=== PATIENT | female | born 1975 | race Caucasian/White ===

== ENCOUNTER 2016-09-05 20:02 | Outpatient (CLI) | payer MEDICAID ==
[~2016-09-05 20:02] MED LIST: CHOL4PAC19 PO; FAMO-119 PO; HYDR1TAB PO; HYDR25TA4 PO; LISI1TAB10 PO; METO-272 PO; MTF500T PO; NAPR500T3 PO; OMNICEF PO; ONDA8TAB13 PO; PANT40TA2 PO; POTA-51 PO; RT-ALBUINH IH; TRAM50TA2 PO
== END 2016-09-06 07:25 | disposition home or self-care (01) ==
LOC: SLEEP 20:02
PROVIDERS: ATTEND Nurse Practitioner Family
DX: G47.10 Hypersomnia, unspecified (principal); R06.83 Snoring
CPT/HCPCS: 95811

== ENCOUNTER 2016-11-08 10:06 | Emergency (ER) | payer MEDICAID ==
[~2016-11-08] VITALS: Ht 165.1 cm; Wt 139.3 kg
[2016-11-08] MEDS ORDERED: ASPIRIN 81 MG CHEW (CHILDREN'S ASA) PO ONE (10:15)
--- NOTE | 2016-11-08 10:25 | ED General ---
General Stated Complaint: DIZZY/CHEST PAIN HEADACHE Source of Information: Patient Exam Limitations: No Limitations History of Present Illness Time Seen by Provider: 10:23 Initial Comments Ambulatory to ER with reports of dizziness that began this morning upon awakening, chest pain, shortness of breath, diffuse body cramping. Upon arrival to the emergency room to be seen she developed headache. Timing/Duration: 4-6 Hours Severity: Moderate Associated Systoms: Chest Pain, No Cough, No Diaphoresis, No Fever/Chills, Headaches, No Loss of Appetite, No Malaise, No Nausea/Vomiting, No Rash Allergies and Home Medications Allergies Coded Allergies: Penicillins (Unverified Allergy, Unknown, HIVES, 06/23/14) BURNING SENSATION ALL OVER BODY Constitutional: see HPI EENTM: see HPI Respiratory: no symptoms reported Cardiovascular: see HPI, chest pain Genitourinary: no symptoms reported Musculoskeletal: see HPI, muscle cramps Skin: no symptoms reported Psychiatric/Neurological: See HPI, Headache Hematologic/Lymphatic: No Symptoms Reported Immunological/Allergic: no symptoms reported Past Zdwsorb-Ksjzcx-Whjspt Hx Patient Social History Recent Foreign Travel: No Contact w/Someone Who Travel: No Surgeries HX Surgeries: Yes (HERNIA, BLADDER SLING) Surgeries: Abdominal, Bladder Surgery, Gallbladder, Hysterectomy, Tubal Ligation Respiratory Hx Respiratory Disorders: Yes (ASTHMA) Respiratory Disorders: Asthma Cardiovascular Hx Cardiac Disorders: Yes Cardiac Disorders: Hypertension Neurological Hx Neurological Disorders: No 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 Genitourinary Hx Genitourinary Disorders: No Gastrointestinal Hx Gastrointestinal Disorders: No Musculoskeletal Hx Musculoskeletal Disorders: No Endocrine Hx Endocrine Disorders: Yes (OBESITY) Endocrine Disorders: Diabetes, Non-Insulin dep HEENT HX ENT Disorders: No Cancer Hx Cancer: No Psychosocial Hx Psychiatric Problems: No Blood Transfusions Hx Blood Disorders: No Family Medical History Significant Family History: No Pertinent Family Hx Physical Exam Vital Signs Vital Sign - Last 12Hours 11/08/16 10:06 Temp 97.9 Pulse 87 Resp 18 Pulse Ox 98 O2 Delivery Room Air Capillary Refill : General Appearance: No Apparent Distress, WD/WN, Obese Eyes: Bilateral Eye EOMI, Bilateral Eye Normal Inspection, Bilateral Eye PERRL HEENT: PERRL/EOMI, TMs Normal Neck: Full Range of Motion, Normal Inspection Respiratory: Normal Breath Sounds, No Accessory Muscle Use, No Respiratory Distress Cardiovascular: Regular Rate, Rhythm, Normal Peripheral Pulses Gastrointestinal: Normal Bowel Sounds, Non Tender, Soft Neurologic/Psychiatric: Alert, Oriented x3, No Motor/Sensory Deficits Skin: Normal Color, Warm/Dry Progress/Results/Core Measures Results/Orders Lab Results Laboratory Tests Test 11/08/16 10:25 11/08/16 10:43 Range/Units White Blood Count 13.6 H 4.3-11.0 10^3/uL Red Blood Count 4.65 4.35-5.85 10^6/uL Hemoglobin 13.0 11.5-16.0 G/DL Hematocrit 41 35-52 % Mean Corpuscular Volume 89 80-99 FL Mean Corpuscular Hemoglobin 28 25-34 PG Mean Corpuscular Hemoglobin Concent 32 32-36 G/DL Red Cell Distribution Width 15.9 H 10.0-14.5 % Platelet Count 334 130-400 10^3/uL Mean Platelet Volume 9.6 7.4-10.4 FL Neutrophils (%) (Auto) 78 H 42-75 % Lymphocytes (%) (Auto) 17 12-44 % Monocytes (%) (Auto) 3 0-12 % Eosinophils (%) (Auto) 2 0-10 % Basophils (%) (Auto) 0 0-10 % Neutrophils # (Auto) 10.6 H 1.8-7.8 X 10^3 Lymphocytes # (Auto) 2.3 1.0-4.0 X 10^3 Monocytes # (Auto) 0.4 0.0-1.0 X 10^3 Eosinophils # (Auto) 0.2 0.0-0.3 10^3/uL Basophils # (Auto) 0.0 0.0-0.1 10^3/uL Prothrombin Time 13.6 12.2-14.7 SEC INR Comment 1.1 0.8-1.4 Activated Partial Thromboplast Time 29 24-35 SEC Sodium Level 140 135-145 MMOL/L Potassium Level 4.0 3.6-5.0 MMOL/L Chloride Level 103 98-107 MMOL/L Carbon Dioxide Level 25 21-32 MMOL/L Anion Gap 12 5-14 MMOL/L Blood Urea Nitrogen 8 7-18 MG/DL Creatinine 0.74 0.60-1.30 MG/DL Estimat Glomerular Filtration Rate > 60 BUN/Creatinine Ratio 11 Glucose Level 186 H 70-105 MG/DL Calcium Level 9.3 8.5-10.1 MG/DL Magnesium Level 2.1 1.8-2.4 MG/DL Total Bilirubin 0.7 0.1-1.0 MG/DL Aspartate Amino Transf (AST/SGOT) 12 5-34 U/L Alanine Aminotransferase (ALT/SGPT) 10 0-55 U/L Alkaline Phosphatase 124 40-136 U/L Myoglobin 28.9 10.0-92.0 NG/ML Troponin I < 0.30 <0.30 NG/ML Total Protein 7.5 6.4-8.2 G/DL Albumin 3.9 3.2-4.5 G/DL Urine Color YELLOW Urine Clarity CLEAR Urine pH 7 5-9 Urine Specific [place] 1.005 L 1.016-1.022 Urine Protein NEGATIVE NEGATIVE Urine Glucose (UA) NEGATIVE NEGATIVE Urine Ketones NEGATIVE NEGATIVE Urine Nitrite NEGATIVE NEGATIVE Urine Bilirubin NEGATIVE NEGATIVE Urine Urobilinogen NORMAL NORMAL MG/DL Urine Leukocyte Esterase NEGATIVE NEGATIVE Urine RBC (Auto) NEGATIVE NEGATIVE Urine RBC NONE /HPF Urine WBC RARE /HPF Urine Squamous Epithelial Cells 2-5 /HPF Urine Crystals NONE /LPF Urine Bacteria FEW H /HPF Urine Casts NONE /LPF Urine Mucus NEGATIVE /LPF Urine Culture Indicated NO My Orders Orders - ANALISA MENDOZA APRN Cbc With Automated Diff (11/08/16 10:11) Magnesium (11/08/16 10:11) Ekg Tracing (11/08/16 10:11) Cardiac Profile 1 (11/08/16 10:11) Comprehensive Metabolic Panel (11/08/16 10:11) Myoglobin Serum (11/08/16 10:11) Protime With Inr (11/08/16 10:11) Partial Thromboplastin Time (11/08/16 10:11) O2 (11/08/16 10:11) Monitor-Rhythm Ecg Trace Only (11/08/16 10:11) Lipid Panel (11/09/16 06:00) Aspirin Chewable Tablet (Baby Aspirin Ch (11/08/16 10:15) Saline Lock/Iv-Start (11/08/16 10:11) Ct Head Wo (11/08/16 10:23) Ct Angio Chest W (11/08/16 10:31) Ua Culture If Indicated (11/08/16 10:33) Iohexol Injection (Omnipaque 350 Mg/Ml 1 (11/08/16 10:45) Sodium Chloride Flush (Catheter Flush Sy (11/08/16 10:45) Ns (Ivpb) (Sodium Chloride 0.9% Ivpb Bag (11/08/16 10:45) Ketorolac Injection (Toradol Injection) (11/08/16 11:45) Diphenhydramine Injection (Benadryl Inje (11/08/16 11:45) Ns Iv 1000 Ml (Sodium Chloride 0.9%) (11/08/16 11:45) Medications Given in ED Current Medications Medications Dose Ordered Sig/Marisela Route Start Time Stop Time Status Last Admin Dose Admin Aspirin 324 mg ONCE ONCE PO 11/08/16 10:15 11/08/16 10:16 DC 11/08/16 10:29 324 MG Diphenhydramine HCl 25 mg ONCE ONCE IVP 11/08/16 11:45 11/08/16 11:46 DC 11/08/16 12:02 25 MG Iohexol 150 ml ONCE ONCE IV 11/08/16 10:45 11/08/16 10:46 DC 11/08/16 11:30 125 ML Ketorolac Tromethamine 30 mg ONCE ONCE IVP 11/08/16 11:45 11/08/16 11:46 DC 11/08/16 12:01 30 MG Sodium Chloride 10 ml NEEDED PRN IV 11/08/16 10:45 11/08/16 11:30 10 ML Sodium Chloride 100 ml ONCE ONCE IV 11/08/16 10:45 11/08/16 10:46 DC 11/08/16 11:30 80 ML Vital Signs/I&O Vital Sign - Last 12Hours 11/08/16 11/08/16 11/08/16 10:06 10:29 12:01 Temp 97.9 97.3 97.3 Pulse 87 Resp 18 B/P (MAP) Pulse Ox 98 O2 Delivery Room Air Departure Communication Progress Notes 1239-Patient had a completely clean cardiac catheterization 3 years ago. Impression Impression: Primary Impression: Headache Additional Impressions: general malaise Chest pain Departure-Patient Inst. Decision time for Depature: 12:39 Referrals: DAVID CABRERA MD (PCP/Family) Primary Care Physician Patient Instructions: Chest Pain That Is Not Caused by the Heart (DC) Add. Discharge Instructions: 1. Return to ER for any concerns 2. Follow-up with your doctor later this week 3. Work/School Note: Work Release Form Date Seen in the Emergency Department: Nov 08, 2016 Return to Work: Nov 09, 2016 ANALISA MENDOZA APRN Nov 08, 2016 10:25
[2016-11-08 10:35] LABS: BASOPHILS % (AUTO) 0 % (0-10); EOSINOPHILS # (AUTO) 0.2 10^3/uL (0.0-0.3); EOSINOPHILS % (AUTO) 2 % (0-10); LYMPHOCYTES # (AUTO) 2.3 X 10^3 (1.0-4.0); LYMPHOCYTES % (AUTO) 17 % (12-44); MEAN CORPUSCULAR HEMOGLOBIN 28 PG (25-34); MEAN CORPUSCULAR HGB CONC 32 G/DL (32-36); MEAN CORPUSCULAR VOLUME 89 FL (80-99); MEAN PLATELET VOLUME 9.6 FL (7.4-10.4); MONOCYTES # (AUTO) 0.4 X 10^3 (0.0-1.0); MONOCYTES % (AUTO) 3 % (0-12); NEUTROPHILS # (AUTO) 10.6 X 10^3 (1.8-7.8); NEUTROPHILS % (AUTO) 78 % (42-75); PLATELET COUNT 334 10^3/uL (130-400); RED BLOOD COUNT 4.65 10^6/uL (4.35-5.85); RED CELL DISTRIBUTION WIDTH 15.9 % (10.0-14.5); WHITE BLOOD COUNT 13.6 10^3/uL (4.3-11.0)
[2016-11-08] MEDS ORDERED: IOHEXOL 350 MG/ML 150 ML (OMNIPAQUE 350) VIAL IV ONE (10:45)
[2016-11-08] MEDS ORDERED: NS 100 ML (IVPB) BAG IV ONE (10:45)
[2016-11-08] MEDS ORDERED: CATHETER FLUSH 10 ML SYR IV PRN (10:45)
[2016-11-08 10:52] LABS: INR 1.1 (0.8-1.4); PROTHROMBIN TIME PATIENT 13.6 SEC (12.2-14.7)
[2016-11-08 10:53] LABS: BILIRUBIN,URINE NEGATIVE (NEGATIVE); KETONES,URINE NEGATIVE (NEGATIVE); LEUKOCYTE ESTERASE ,URINE NEGATIVE (NEGATIVE); NITRITE,URINE NEGATIVE (NEGATIVE); PH,URINE 7 (5-9); PROTEIN,URINE NEGATIVE (NEGATIVE); UROBILINOGEN,URINE NORMAL (NORMAL)
[2016-11-08 11:03] LABS: WBC,URINE RARE /HPF
[2016-11-08 11:08] LABS: ALANINE AMINOTRANSFERASE 10 U/L (0-55); ALBUMIN 3.9 G/DL (3.2-4.5); ANION GAP 12 MMOL/L (5-14); ASPARTATE AMINO TRANSFERASE 12 U/L (5-34); BILIRUBIN,TOTAL 0.7 MG/DL (0.1-1.0); BLOOD UREA NITROGEN 8 MG/DL (7-18); BUN/CREATININE RATIO 11; CALCIUM 9.3 MG/DL (8.5-10.1); CARBON DIOXIDE 25 MMOL/L (21-32); CHLORIDE 103 MMOL/L (98-107); CREATININE SERUM 0.74 MG/DL (0.60-1.30); GFR ESTIMATED > 60; GLUCOSE 186 MG/DL (70-105); MAGNESIUM 2.1 MG/DL (1.8-2.4); MYOGLOBIN SERUM 28.9 NG/ML (10.0-92.0); SODIUM 140 MMOL/L (135-145); TOTAL PROTEIN 7.5 G/DL (6.4-8.2)
[2016-11-08] MEDS ORDERED: NS IV 1000 ML 1,000 ML IV SCH (11:45)
[2016-11-08] MEDS ORDERED: KETOROLAC 30 MG/ML VIAL IVP ONE (11:45)
[2016-11-08] MEDS ORDERED: diphenhydrAMINE 50 MG/ML INJ (BENADRYL) IVP ONE (11:45)
--- NOTE | 2016-11-08 11:50 | Diagnostic Imaging Report ---
PROCEDURE: CT head without contrast. TECHNIQUE: Multiple contiguous axial images were obtained through the brain without the use of intravenous contrast. INDICATION: Dizziness. FINDINGS: There is no intracranial hemorrhage, edema, or mass effect. The brain parenchyma and dykes-white differentiation is preserved. There is no hydrocephalus. No extra-axial fluid collection is seen. The calvarium, the paranasal sinuses and orbits appear grossly unremarkable. IMPRESSION: Unremarkable exam. Dictated by: Dictated on workstation # [id number]
--- NOTE | 2016-11-08 12:19 | Diagnostic Imaging Report ---
PROCEDURE: CT angiography of the chest with contrast. TECHNIQUE: Multiple contiguous axial images were obtained through the chest after uneventful bolus administration of intravenous contrast. Reconstructed CTA MIP acquisitions were also performed. INDICATION: Chest pain, dizziness. 125 mL of Omnipaque 350 is administered intravenously. COMPARISON: 01/14/2016, exam. FINDINGS: There is good opacification of the pulmonary arteries with no filling defects to suggest pulmonary embolism. The thoracic aorta is normal in caliber. There is no mediastinal or hilar mass. No lymphadenopathy. No axillary lymphadenopathy is seen either. The lungs demonstrate minimal atelectasis and scarring in the posterior aspect of the right lung base. The left lung demonstrates no significant consolidation or mass. The heart size is normal. No pericardial or pleural effusion. Sections of the upper abdomen demonstrate no significant abnormality. Minimal degenerative changes of the thoracic spine seen. IMPRESSION: 1. No PE or aortic dissection. 2. Minimal right basilar atelectasis and scarring. Dictated by: Dictated on workstation # [id number]
[2016-11-08 13:44] VITALS: BP 132/70
== END 2016-11-08 13:44 | disposition home or self-care (01) ==
LOC: EDUNIT# 10:06 → ER 10:09
DX: R07.89 Other chest pain (principal); R42 Dizziness and giddiness; R51 Headache; R53.81 Other malaise; I10 Essential (primary) hypertension; E11.9 Type 2 diabetes mellitus without complications; E66.9 Obesity, unspecified
CPT/HCPCS: 36415; 70450; 71275; 80053; 81000; 83735; 83874; 84484; 85025; 85610; 85730; 93005; 93041; 96374; 96375

== ENCOUNTER 2016-12-20 14:53 | Outpatient (RCR) | payer MEDICAID ==
[2016-12-20 15:40] LABS: BASOPHILS % (AUTO) 0 % (0-10); EOSINOPHILS # (AUTO) 0.2 10^3/uL (0.0-0.3); EOSINOPHILS % (AUTO) 2 % (0-10); LYMPHOCYTES # (AUTO) 2.7 X 10^3 (1.0-4.0); LYMPHOCYTES % (AUTO) 21 % (12-44); MEAN CORPUSCULAR HEMOGLOBIN 27 PG (25-34); MEAN CORPUSCULAR HGB CONC 31 G/DL (32-36); MEAN CORPUSCULAR VOLUME 88 FL (80-99); MEAN PLATELET VOLUME 9.1 FL (7.4-10.4); MONOCYTES # (AUTO) 0.4 X 10^3 (0.0-1.0); MONOCYTES % (AUTO) 3 % (0-12); NEUTROPHILS # (AUTO) 9.6 X 10^3 (1.8-7.8); NEUTROPHILS % (AUTO) 74 % (42-75); PLATELET COUNT 365 10^3/uL (130-400); RED BLOOD COUNT 4.43 10^6/uL (4.35-5.85); RED CELL DISTRIBUTION WIDTH 16.1 % (10.0-14.5); WHITE BLOOD COUNT 12.9 10^3/uL (4.3-11.0)
[2016-12-20 16:15] LABS: ALANINE AMINOTRANSFERASE 10 U/L (0-55); ALBUMIN 3.7 G/DL (3.2-4.5); ANION GAP 9 MMOL/L (5-14); ASPARTATE AMINO TRANSFERASE 9 U/L (5-34); BILIRUBIN,TOTAL 0.5 MG/DL (0.1-1.0); BLOOD UREA NITROGEN 9 MG/DL (7-18); BUN/CREATININE RATIO 13; CALCIUM 9.5 MG/DL (8.5-10.1); CARBON DIOXIDE 30 MMOL/L (21-32); CHLORIDE 102 MMOL/L (98-107); CREATININE SERUM 0.72 MG/DL (0.60-1.30); GFR ESTIMATED > 60; GLUCOSE 160 MG/DL (70-105); SODIUM 141 MMOL/L (135-145); TOTAL PROTEIN 7.4 G/DL (6.4-8.2)
== END 2017-03-20 | disposition home or self-care (01) ==
LOC: ONC 14:53
PROVIDERS: ATTEND Internal Medicine Hematology & Oncology
DX: D47.3 Essential (hemorrhagic) thrombocythemia (principal); D72.829 Elevated white blood cell count, unspecified; I10 Essential (primary) hypertension; E11.9 Type 2 diabetes mellitus without complications; M12.9 Arthropathy, unspecified; E66.01 Morbid (severe) obesity due to excess calories; Z68.43 Body mass index [BMI] 50.0-59.9, adult; J45.909 Unspecified asthma, uncomplicated; G47.33 Obstructive sleep apnea (adult) (pediatric); Z79.899 Other long term (current) drug therapy
CPT/HCPCS: 36415; 80053; 85025; 99213

== ENCOUNTER → 2018-04-04 | Outpatient (CLI) | payer BC, MEDICAID ==
[~2018-04-04] MED LIST changes: +NAPR-915 PO; -NAPR500T3 PO
--- NOTE | 2018-04-04 17:39 | Diagnostic Imaging Report ---
PROCEDURE: CT chest without contrast. TECHNIQUE: Multiple contiguous axial images were obtained through the chest without the use of intravenous contrast. INDICATION: Dyspnea. COMPARISON: CTA chest 11/08/2016. FINDINGS: There is a small nonspecific area of consolidation in the posterior right lung base measuring up to 2.1 cm. The lungs are otherwise clear. No endobronchial lesions. No pleural effusion or pneumothorax. Normal heart size. No pericardial effusion. No mediastinal, hilar or axillary lymphadenopathy. Cholecystectomy. No acute osseous findings. IMPRESSION: Small nonspecific area of consolidation in the posterior right lung base may be due to atelectasis or infiltrate. CT of the chest is otherwise unremarkable. Dictated by: Dictated on workstation # [id number]
== END ==
LOC: RAD 16:24
PROVIDERS: ATTEND Nurse Practitioner Primary Care
DX: J18.1 Lobar pneumonia, unspecified organism (principal); J45.30 Mild persistent asthma, uncomplicated
CPT/HCPCS: 71250

== ENCOUNTER → 2023-06-05 | Outpatient (CLI) | payer BC, OTHER ==
[~2023-06-05] MED LIST changes: +CATHETER FLUSH 10 ML SYR IVP PRN; +POTA-330 PO; -POTA-51 PO; +REGADENOSON 0.4 MG/5 ML SYR IV ONE; -TRAM50TA2 PO; +TRM50T PO
[2023-06-05 09:51] VITALS: BP 117/85
[2023-06-05 09:56] VITALS: BP 153/108
--- NOTE | 2023-06-05 12:22 | Cardiology Stress Test Report ---
Stress Test Report Date of Procedure/Referring: Date of Procedure: Jun 05, 2023 PCP Vilma Macias Aprn Admitting Physician Admitting Physician: Attending Physician: Luz Queen MD Baseline Heart Rate: 76 Baseline Blood Pressure: Blood Pressure Systolic: 153 Blood Pressure Diastolic: 108 Baseline Vitals Vital Signs Date Time Temp Pulse Resp B/P (MAP) Pulse Ox O2 Delivery O2 Flow Rate FiO2 06/05/23 09:51 55 117/85 (96) Baseline EKG: Baseline EKG: NSR Summary After explaining the procedure to the patient, she signed a consent and then brought to the stress nuclear laboratory. Patient received 0.4 mg Lexiscan for stress test, ECG, heart rate and blood pressure were monitored continuously. Resting and stress dose of radio tracer were injected, imaging was acquired and reviewed in short axis, horizontal long axis and vertical long axis views. TID: 1.19 SSS: 11 SDS: 6 EF: 45 Patient tolerated Lexiscan well Breast attenuation with large area of reversible ischemia involving the whole anterior wall and anterior lateral wall Normal left ventricular size with anterior wall hypokinesia ejection fraction 45% Copy Copies To 1: [facility] [place] LUZ QUEEN MD Jun 05, 2023 12:22
== END ==
LOC: CARD 08:27
PROVIDERS: ATTEND Internal Medicine Cardiovascular Disease
DX: I11.9 Hypertensive heart disease without heart failure (principal); N64.89 Other specified disorders of breast
CPT/HCPCS: 78452; 93017; A9502

== ENCOUNTER 2023-06-28 06:53 | Day surgery (SDC) | payer OTHER ==
[~2023-06-28] VITALS: Ht 165.1 cm; Wt 138.6 kg
[2023-06-28] VITALS (8 sets, daily range): BP systolic 123–145; BP diastolic 65–97
[~2023-06-28 06:53] MED LIST changes: -CATHETER FLUSH 10 ML SYR IVP PRN; -REGADENOSON 0.4 MG/5 ML SYR IV ONE
[2023-06-28] MEDS ORDERED: NS IV 1000 ML 1,000 ML ONE (06:56)
[2023-06-28] MEDS ORDERED: LIDOCAINE 1% INJ 20 ML VIAL ONE (06:56)
[2023-06-28] MEDS ORDERED: HEParin (CATH LAB) 2,000 ML IV ONE (06:56)
[2023-06-28] MEDS ORDERED: NS IV 1000 ML 1,000 ML IV SCH ×2 (07:00→08:45)
[2023-06-28 07:29] LABS: HEMATOCRIT 42 % (35-52); HEMOGLOBIN 13.3 g/dL (11.5-16.0); MEAN CORPUSCULAR HEMOGLOBIN 31 pg (25-34); MEAN CORPUSCULAR HGB CONC 32 g/dL (32-36); MEAN CORPUSCULAR VOLUME 98 fL (80-99); MEAN PLATELET VOLUME 9.4 fL (9.0-12.2); PLATELET COUNT 241 10^3/uL (130-400); WHITE BLOOD COUNT 10.7 10^3/uL (4.3-11.0)
[2023-06-28] MEDS ORDERED: GABA300C PO ×2 (07:30)
[2023-06-28] MEDS ORDERED: LISI40TA9 PO (07:30)
[2023-06-28] MEDS ORDERED: AMLO2.5T4 PO (07:30)
[2023-06-28] MEDS ORDERED: DICL75TA2 PO (07:30)
[2023-06-28] MEDS ORDERED: ALBU6.7H13 INH (07:30)
[2023-06-28] MEDS ORDERED: VERAPAMIL 5 MG/2 ML (CALAN) VIAL IV ONE (07:37)
[2023-06-28] MEDS ORDERED: MIDAZOLAM INJ 5 MG/5 ML VIAL ONE (07:37)
[2023-06-28] MEDS ORDERED: fentaNYL INJECTION 100 MCG/2 ML VIAL ONE (07:37)
[2023-06-28] MEDS ORDERED: HEParin 1000 UNIT/ML (10ML VIAL) FOR BOLUS ONE (07:37)
[2023-06-28] MEDS ORDERED: NITRO DRIP 25000 MCG/D5W 250 ML IV ONE (07:38)
--- NOTE | 2023-06-28 07:42 | Diagnostic Imaging Report ---
CLINICAL INDICATIONS: Precath. No chest complaints. EXAM: Portable chest x-ray upright view. COMPARISON: None. FINDINGS: Lungs/pleura: Lungs are clear. There is no pneumothorax. There is no pleural effusion. Mediastinum: Unremarkable. Pulmonary vasculature: Unremarkable. Heart: Unremarkable. Bones/extrathoracic soft tissue: There are hypertrophic spurs involving the thoracic spine. IMPRESSION: There is no radiographic evidence of acute cardiopulmonary process. Dictated by: Dictated on workstation # [id number]
[2023-06-28 07:44] LABS: BACTERIA,URINE NEGATIVE /HPF; BILIRUBIN,URINE NEGATIVE (NEGATIVE); CLARITY,URINE CLEAR; COLOR,URINE YELLOW; GLUCOSE, URINE (UA) NEGATIVE (NEGATIVE); KETONES,URINE NEGATIVE (NEGATIVE); LEUKOCYTE ESTERASE ,URINE NEGATIVE (NEGATIVE); NITRITE,URINE NEGATIVE (NEGATIVE); PH,URINE 5.5 (5-9); PROTEIN,URINE NEGATIVE (NEGATIVE); WBC,URINE 0-2 /HPF
[2023-06-28 07:47] LABS: PROTHROMBIN TIME PATIENT 13.4 SEC (12.2-14.7)
[2023-06-28 07:53] LABS: ALBUMIN 3.8 GM/DL (3.2-4.5); BILIRUBIN,TOTAL 0.6 MG/DL (0.1-1.0); CALCIUM 9.1 MG/DL (8.5-10.1); CREATININE SERUM 0.73 MG/DL (0.60-1.30)
--- NOTE | 2023-06-28 08:09 | Cardiac Procedure Note-CS/ASA ---
Pre-Procedure Note Pre-Op Procedure Note Date of Available H&P: Jun 12, 2023 Date H&P Reviewed: Jun 28, 2023 Time H&P Reviewed: 08:09 History & Physical: H&P Reviewed, Patient Examed, No changes noted Pre-Operative Diagnosis: CAD Moderate Sedation PreProcedure Time 08:09 ASA Score 3 Airway Lungs Heart ASA score ASA 1: a normal healthy patient ASA 2: a patient with a mild systemic disease (mid diabetes, controlled hypertension, obesity ASA 3: a patient with a severe systemic disease that limits activity (angina, COPD, prior Myocardial infarction) ASA 4: a patient with an incapacitating disease that is a constant threat to life (CHF, renal failure) ASA 5: a moribund patient not expected to survive 24 hrs. (ruptured aneurysm) ASA 6: a declared brain- patient whose organs are being harvested. For emergent operations, add the letter E after the classification Mallampati Classification Grade 3 Sedation Plan Analgesia, Amnesia, Plan communicated to team members, Discussed options with patient/fam, Discussed risks with patient/fam The patient is an appropriate candidate to undergo the planned procedure, sedation, and anesthesia. The patient immediately re-assessed prior to indication. LUZ BARRETO MD Jun 28, 2023 08:09
--- NOTE | 2023-06-28 08:45 | Discharge Inst-Post CATH ---
Discharge Inst-CATH/EP Problems Reviewed?: Yes Post Cardiac Cath/EP D/C Inst Follow Up/Plan Appointment with Dr. Queen's office in 2 to 4 weeks <b>CARDIAC CATH/EP PROCEDURE DISCHARGE INSTRUCTIONS</b> ACTIVITY * Go Home directly and rest. * Limit activity of the leg (or wrist if it was used) for 7 days including aer obics, swimming, jogging, bicycling, etc. * Restrict stair-climbing for 7 days if possible, if not, climb up with your non-cath leg, then bring together on the same step. * Avoid lifting, pushing, pulling or excessive movement of the affected extremi ty for 7 days. * Customary sexual activity may be resumed after 2 days-use caution not to use a position that strains or causes pain to the affected extremity. * No driving for 24 hours. * NO SMOKING. * Avoid straining for bowel movements for 7 days. * Gentle walking on level ground is allowed. * Returning to work will depend on the type of procedure and the results. Your doctor will discuss this with you. CALL YOUR DOCTOR FOR ANY OF THE FOLLOWING: *If bleeding from the puncture site occurs- Apply gentle pressure to site with clean cloth and call your doctor or EMS. * If a knot or lump forms under the skin, increases in size, or causes pain. * If bruising appears to be worsening or moving further down your leg instead of disappearing. * Temperature above 101 F. CARE OF YOUR GROIN INCISION; * Bruising or purple discoloration of the skin near the puncture site is common. * You may shower only, no bathtub bathing for 5 days. Be careful to avoid slipping as your leg may feel stiff. * If a closure device was used on your femoral artery, please see the attached guide regarding care of the device and your leg. * Leave dressing on FOR 24 hours. CARE OF YOUR WRIST INCISION; * Bruising or purple discoloration of the skin near the puncture site is common. * You may shower. * DO NOT submerge wrist. * Leave dressing on FOR 24 hours. LUZ QUEEN MD Jun 28, 2023 08:45
--- NOTE | 2023-06-28 08:48 | Cardiac Cath Report ---
Cardiac Cath Report Physician (s)/Scissors Sharpener (s) Physician LUZ BARRETO MD Pre-Procedure Diagnosis Pre-Procedure Diagnosis: CAD Post-Procedure Note Procedure Start Date: Jun 28, 2023 Procedure Start Time: 08:46 Name of Procedure: Left heart catheterization Findings/Procedure Note PROCEDURE NOTE: 48 years old lady with history of hypertension, hyperlipidemia, dyspnea, had an abnormal stress test, scheduled for cardiac catheterization possible PTCA. After explaining the procedure to the patient, all pros and cons were explained, all questions were answered. The patient signed the consent and then she was placed in the cardiac catheterization laboratory. Groin was prepped in SL fashion local anesthesia was used. Sheath placed in the right radial artery, I had difficulty advancing the J-wire through the brachial artery, exchanged wire to baby J-wire and I was able to advance it, engaged the right and left coronary system, angiogram was done then I advanced a J-wire again and prolapses through the aortic valve then advanced the catheter pressure was measured no left ventriculogram was done. Pullback LV to aorta was done. At the end of the procedure the sheath was removed. Vascular band was used FINDINGS: Hemodynamics LV 136/30, end-diastolic pressure of 30 Aorta 148/93 mean of 117 ANATOMY: Left Main is free of obstructive disease Left Anterior Descending is tortuous artery with small vessel disease distally nonobstructive disease Left Circumflex is moderate in size with no obstructive disease Right Coronary Artery is large dominant artery with no obstructive disease LV Gram was not done, pressure was measured CONCLUSION: Slightly tortuous LAD system small vessel disease nonobstructive disease Otherwise no significant obstructive disease in the coronary system Elevated left ventricular end-diastolic pressure Incidental finding patient was hypoxemic with minimal exertion. Probably underlying significant COPD DISCUSSION AND RECOMMENDATION: Abnormal stress test is probably due to extracardiac attenuation, patient will need pulmonary evaluation Anesthesia Type: Conscious Sedation Estimated blood loss (mL): 10 ml Contrast Amount: 33 ml Total Radiation Dose: 526 mGy Post-Procedure Diagnosis Post-operative diagnosis: Dyspnea Coronary artery disease Hypertension Hyperlipidemia LUZ BARRETO MD Jun 28, 2023 08:48
== END 2023-06-28 12:54 | disposition home or self-care (01) ==
LOC: CATH 06:53 → SDC 09:04 → CATH 12:54
PROVIDERS: ATTEND Internal Medicine Cardiovascular Disease
DX: I25.10 Atherosclerotic heart disease of native coronary artery without angina pectoris (principal); J45.909 Unspecified asthma, uncomplicated; I65.23 Occlusion and stenosis of bilateral carotid arteries; I10 Essential (primary) hypertension; E78.5 Hyperlipidemia, unspecified; I35.0 Nonrheumatic aortic (valve) stenosis; E11.9 Type 2 diabetes mellitus without complications; Z87.891 Personal history of nicotine dependence; Z79.899 Other long term (current) drug therapy
CPT/HCPCS: 71045; 80053; 80061; 81000; 85027; 85610; 85730; 87081; 93005; 93458; C1769; C1894; 36415